=== PATIENT | female | born 1945 | race Caucasian/White ===

== ENCOUNTER → 2016-12-26 | Outpatient (CLI) | payer MEDICARE, OTHER ==
[2015-10-22 21:36] VITALS: BP 177/77
[~2016-12-26] MED LIST: HYDR2TAB31 PO; LISI10TA2 PO; OXYC10TA45 PO
== END | disposition home or self-care (01) ==
LOC: PCVCCLINIC 13:55
PROVIDERS: ATTEND Internal Medicine
DX: I47.1 Supraventricular tachycardia (principal); E78.5 Hyperlipidemia, unspecified; I10 Essential (primary) hypertension; G47.33 Obstructive sleep apnea (adult) (pediatric); C90.00 Multiple myeloma not having achieved remission; J45.30 Mild persistent asthma, uncomplicated; K21.9 Gastro-esophageal reflux disease without esophagitis; Z90.49 Acquired absence of other specified parts of digestive tract; Z79.82 Long term (current) use of aspirin; Z90.710 Acquired absence of both cervix and uterus; Z88.1 Allergy status to other antibiotic agents; Z91.048 Other nonmedicinal substance allergy status
CPT/HCPCS: 80061; 93005; G0463

== ENCOUNTER 2017-01-09 21:32 | Emergency (ER) | payer MEDICARE, OTHER ==
[~2017-01-09] VITALS: Ht 154.9 cm; Wt 128.4 kg
[2017-01-09] MEDS ORDERED: DIPHTH,PERTUSS(ACELL),TET TOX 0.5 ML DISP.SYRIN. VAX IM ONE (22:30)
[2017-01-09] MEDS ORDERED: HYDROcodone/APAP 5/325MG 1 TAB TABLET PO ONE (22:30)
--- NOTE | 2017-01-09 23:03 | RAD ---
: HISTORY: Line placement DATE OF SERVICE: 01/09/2017. COMPARISON: 2 views chest from earlier today. All the. No pneumothorax or mediastinal silhouette appears normal. Lungs are clear. IMPRESSION: Exam performed: CT scan of the head without contrast. Date of Service: 01/09/2017. Comparison: CT head without contrast from 01/02/2013. Clinical History: Dizziness and syncope. Technique: Helical acquisitions are obtained from the foramen magnum to the vertex without intravenous administration of contrast. In addition helical acquisitions also obtained through the maxillofacial structures. Sagittal and coronal reformatted images are obtained and reviewed. CT head Findings: Mild age-related atrophy is noted. Normal valentine-white differentiation is maintained. There is no extra axial fluid collection, intraparenchymal hemorrhage or mass lesion. The visualized portions of the orbits, paranasal sinuses and the mastoid air cells appear clear. The calvarium is intact. Impression: 1. No acute intracranial process detected. End impression CT scan maxillofacial findings: There is normal aeration of both maxillary, ethmoid, frontal and sphenoid sinuses. No air-fluid level, mucoperiosteal thickening or mucus retention cyst is identified. The bony orbital margins and the intraorbital contents are bilaterally symmetric. The zygomatic arches are intact. Impression: 1. Negative maxillofacial CT scan PQRS Compliance Statement: One or more of the following individualized dose reduction techniques were utilized for this examination: 1. Automated exposure control 2. Adjustment of the mA and/or kV according to patient size 3. Use of iterative reconstruction technique Electronically signed by: Ceci Rico MD (01/09/2017 10:59 PM) [facility]
[2017-01-09 23:15] VITALS: BP 142/74
[2017-01-09] MEDS ORDERED: HYDR-971 PO (23:27)
[2017-01-09] MEDS ORDERED: CEPH-264 PO (23:27)
--- NOTE | 2017-01-09 23:27 | PHYS DOC ---
Past Medical History Past Medical History: Asthma, Cancer, COPD, Hypertension Additional Past Medical Histor: DDD- pain clinic, SLEEP APNEA, MULTIPLE MYELOMA , ENDOMETRIAL CA Past Surgical History: Appendectomy, Cholecystectomy, Hysterectomy Additional Past Surgical Histo: bx L breast, bx of mass is abdomen, L knee surgery, CATARACT, HERNIA Alcohol Use: None Drug Use: None Adult General Chief Complaint Chief Complaint: MULTIPLE TRAUMA/FALL HPI HPI Patient is a 71 year old female presenting to the emergency department for evaluation of headache os consciousness and nasal pain after she tripped while walking her dog and landed on her face. She has multiple abrasions and thinks that her tetanus is not up-to-date so it was updated here. Patient is on chemotherapy and is concerned about possible infection. Patient denies any neck chest abdomen back or other extremity pain. Patient is in no obvious distress with normal vital signs. Review of Systems Review of Systems Constitutional: Denies fever or chills [] Respiratory: Denies cough or shortness of breath [] Cardiovascular: No CP GI: Denies abdominal pain, nausea, vomiting, bloody stools or diarrhea [] Musculoskeletal: Denies back pain or joint pain [] Integument: Denies abrasions Current Medications Current Medications Current Medications Medications (Trade) Dose Ordered Sig/Lily Start Time Stop Time Status Last Admin Dose Admin Acetaminophen/ Hydrocodone Bitart (Lortab 5/325) 2 tab 1X ONCE 01/09/17 22:30 01/09/17 22:31 DC 01/09/17 22:20 2 TAB Diphtheria/ Tetanus/Acell Pertussis (Boostrix) 0.5 ml ONCE ONCE 01/09/17 22:30 01/09/17 22:31 DC 01/09/17 22:21 0.5 ML Allergies Allergies Allergies Coded Allergies Type Severity Reaction Last Updated Verified No Known Drug Allergies 06/04/13 No Physical Exam Physical Exam Constitutional: Well developed, well nourished, no acute distress, non-toxic appearance. [] HENT: Normocephalic, nasal contusion with abrasions, bilateral external ears normal, oropharynx moist, no oral exudates, nose with no septal hematoma Eyes: PERRLA, EOMI, conjunctiva normal, no discharge. [] Cardiovascular:Heart rate regular rhythm, no murmur [] Lungs & Thorax: Bilateral breath sounds clear to auscultation [] Abdomen: Bowel sounds normal, soft, no tenderness, no masses, no pulsatile masses. [] Skin: Warm, dry, no erythema, no rash. [] Back: No tenderness, no CVA tenderness. [] Extremities: No tenderness, no cyanosis, no clubbing, ROM intact, no edema. [] Neurologic: Alert and oriented X 3, normal motor function, normal sensory function, no focal deficits noted. [] Current Patient Data Vital Signs Vital Signs Date Time Temp Pulse Resp B/P (MAP) Pulse Ox O2 Delivery O2 Flow Rate FiO2 01/09/17 21:42 98.5 109 24 202/97 (132) 98 Room Air 98.5 EKG EKG [] Radiology/Procedures Radiology/Procedures Exam performed: CT scan of the head without contrast. Date of Service: 01/09/2017. Comparison: CT head without contrast from 01/02/2013. Clinical History: Dizziness and syncope. Technique: Helical acquisitions are obtained from the foramen magnum to the vertex without intravenous administration of contrast. In addition helical acquisitions also obtained through the maxillofacial structures. Sagittal and coronal reformatted images are obtained and reviewed. CT head Findings: Mild age-related atrophy is noted. Normal valentine-white differentiation is maintained. There is no extra axial fluid collection, intraparenchymal hemorrhage or mass lesion. The visualized portions of the orbits, paranasal sinuses and the mastoid air cells appear clear. The calvarium is intact. Impression: 1. No acute intracranial process detected. End impression CT scan maxillofacial findings: There is normal aeration of both maxillary, ethmoid, frontal and sphenoid sinuses. No air-fluid level, mucoperiosteal thickening or mucus retention cyst is identified. The bony orbital margins and the intraorbital contents are bilaterally symmetric. The zygomatic arches are intact. Impression: 1. Negative maxillofacial CT scan PQRS Compliance Statement: One or more of the following individualized dose reduction techniques were utilized for this examination: 1. Automated exposure control 2. Adjustment of the mA and/or kV according to patient size 3. Use of iterative reconstruction technique Electronically signed by: Ceci Rico MD (01/09/2017 10:59 PM) [facility] DICTATED and SIGNED BY: CECI RICO MD DATE: 01/09/17 1769 Course & Med Decision Making Course & Med Decision Making Patient with normal CT but there is some abrasions that could become infected. Start Keflex and patient will be treated supportively as an outpatient. Patient aware and agreeable with plan for discharge and verbalized understanding of the need for short-term follow-up and strict ED return precautions discussed worsening pain fevers or other general concerns. Dragon Disclaimer Dragon Disclaimer This electronic medical record was generated, in whole or in part, using a voice recognition dictation system. Departure Departure Impression: Primary Impression: Contusion of nose Additional Impression: Nasal abrasion Disposition: HOME, SELF-CARE Condition: STABLE Referrals: DENNIS RUANO (PCP) Patient Instructions: Contusion Additional Instructions: Put ice on your nose. Take 400mg of ibuprofen every 6 hours and the norco for breakthrough pain. Come back to the ED with worsening pain, infection or other general concerns. Thank you! Scripts Cephalexin (KEFLEX) 500 Mg Capsule 1 CAP PO BID, #10 CAP Prov: JOSY MICHEL DO 01/09/17 Hydrocodone/Apap 5-325 (NORCO 5-325 TABLET) 1 Each Tablet 1 TAB PO PRN Q6HRS Y for PAIN, #10 TAB 0 Refills Prov: JOSY MICHEL DO 01/09/17 Problem Qualifiers Primary Impression: Contusion of nose Encounter type: initial encounter Qualified Codes: S00.33XA - Contusion of nose, initial encounter JOSY MICHEL DO Jan 09, 2017 23:27
== END 2017-01-09 23:30 | disposition home or self-care (01) ==
LOC: ER 21:32
DX: S00.33XA Contusion of nose, initial encounter (principal); J44.9 Chronic obstructive pulmonary disease, unspecified; I10 Essential (primary) hypertension; W01.0XXA Fall on same level from slipping, tripping and stumbling without subsequent striking against object, initial encounter; Y93.89 Activity, other specified; Y92.89 Other specified places as the place of occurrence of the external cause; Y99.8 Other external cause status; Z90.710 Acquired absence of both cervix and uterus; Z90.49 Acquired absence of other specified parts of digestive tract
CPT/HCPCS: 70450; 70486; 90471; 90715; 99284-25

== ENCOUNTER 2017-04-15 12:01 | Inpatient (IN) | payer MEDICARE, OTHER ==
[2017-04-15 12:26] LABS: POC GLUCOSE 103 mg/dL (70-99)
[2017-04-15 12:51] LABS: ADD MAN DIFF? NO
[2017-04-15 12:55] LABS: BASO % 0 % (0-3); EOS # 0.3 x10^3/uL (0.0-0.7); EOS % 2 % (0-3); HEMATOCRIT 35.3 % (36.0-47.0); HEMOGLOBIN 11.3 g/dL (12.0-15.5); LYMPH # 1.7 x10^3/uL (1.0-4.8); LYMPH % 11 % (24-48); MEAN CORPUSCULAR HEMOGLOBIN 31 pg (25-35); MEAN CORPUSCULAR HGB CONC 32 g/dL (31-37); MEAN CORPUSCULAR VOLUME 97 fL (79-100); MONO % 7 % (0-9); NEUT # 11.9 x10^3uL (1.8-7.7); NEUT % 80 % (31-73); PLATELET COUNT 236 x10^3/uL (140-400); RED BLOOD COUNT 3.62 x10^6/uL (3.50-5.40); RED CELL DISTRIBUTION WIDTH 15.6 % (11.5-14.5); WHITE BLOOD COUNT 14.9 x10^3/uL (4.0-11.0)
[2017-04-15 13:09] LABS: ANION GAP 10 (6-14); BLOOD UREA NITROGEN 27 mg/dL (7-20); BUN/CREATININE RATIO 19 (6-20); CALCIUM 9.5 mg/dL (8.5-10.1); CARBON DIOXIDE 27 mmol/L (21-32); CHLORIDE 102 mmol/L (98-107); CREATININE 1.4 mg/dL (0.6-1.0); GFR 37.1; GLUCOSE 115 mg/dL (70-99); POTASSIUM 4.5 mmol/L (3.5-5.1); SODIUM 139 mmol/L (136-145)
[2017-04-15 13:15] LABS: ALBUMIN 2.8 g/dL (3.4-5.0); ALBUMIN/GLOBULIN RATIO 0.9 (1.0-1.7); ALK PHOS 95 U/L (46-116); ALT (SGPT) 25 U/L (14-59); AST (SGOT) 22 U/L (15-37); LIPASE 32 U/L (73-393); MAGNESIUM 1.6 mg/dL (1.8-2.4); TOTAL BILIRUBIN 0.6 mg/dL (0.2-1.0); TOTAL PROTEIN 5.8 g/dL (6.4-8.2)
[2017-04-15 13:17] LABS: TROPONINI < 0.017 ng/mL (0.000-0.055)
[2017-04-15 13:21] LABS: NT-PRO BNP 615 pg/mL (0-124)
[2017-04-15 13:23] LABS: THYROID STIM HORMONE (TSH) 2.818 uIU/mL (0.358-3.74)
[2017-04-15] MEDS: LABETALOL 20 MG/4 ML DISP.SYRIN. IVP (13:30)
[2017-04-15] MEDS ORDERED: ONDANSETRON PF 4 MG/2 ML VIAL. IV (13:45)
[2017-04-15 13:49] LABS: BILIRUBIN,URINE SMALL (NEG); CLARITY,URINE CLEAR; COLOR,URINE AMBER; GLUCOSE,URINE NEGATIVE (NEG); NITRITE,URINE NEGATIVE (NEG); PH,URINE 6.5; PROTEIN,URINE 30 mg/dL (NEG-TRACE)
[2017-04-15 13:57] LABS: BACTERIA,URINE MODERATE /HPF (0-FEW); SQUAMOUS EPITHELIAL CELL,UR MANY /LPF
[2017-04-15] MEDS ORDERED: VANCOMYCIN 2 GM in IV DEXTROSE 5 %-0.2 % NACL 500 ML IV (14:00)
[2017-04-15] MEDS: VANCOMYCIN 2 GM in IV DEXTROSE 5 %-0.2 % NACL 500 ML IV (14:52)
[2017-04-15] MEDS: VANCOMYCIN PER PHARMACY MC (17:47)
[2017-04-15] MEDS ORDERED: IV NORMAL SALINE 500ML BAG 500 ML IV (20:15)
[2017-04-15] MEDS: IV NORMAL SALINE 1000ML BAG 1,000 ML IV ×2 (20:17→20:45)
[2017-04-15] MEDS: LACTOBACILLUS RHAMNOSUS GG 1 CAPSULE. PO (20:54)
[2017-04-15] MEDS: HYDROcodone/APAP 5/325MG 1 TAB TABLET PO (20:55)
[2017-04-15] MEDS: ENOXAPARIN 40 MG/0.4 ML SYRINGE. SQ (20:55)
[2017-04-15 21:37] LABS: INFLUENZA A PATIENT NEGATIVE (NEGATIVE); INFLUENZA B PATIENT NEGATIVE (NEGATIVE); OBC FLU VALID
[2017-04-15] MEDS: HYDROmorphone 2 MG TABLET PO (23:43)
[2017-04-15] MEDS: BENZOCAINE 10% ORAL GEL 7GM TUBE. TP (23:55)
[2017-04-16] MEDS: HYDROcodone/APAP 5/325MG 1 TAB TABLET PO (04:55)
[2017-04-16 07:38] LABS: ADD MAN DIFF? NO
[2017-04-16 07:41] LABS: BASO % 0 % (0-3); EOS # 0.3 x10^3/uL (0.0-0.7); EOS % 3 % (0-3); HEMATOCRIT 33.1 % (36.0-47.0); HEMOGLOBIN 10.6 g/dL (12.0-15.5); LYMPH # 1.4 x10^3/uL (1.0-4.8); LYMPH % 15 % (24-48); MEAN CORPUSCULAR HEMOGLOBIN 31 pg (25-35); MEAN CORPUSCULAR HGB CONC 32 g/dL (31-37); MEAN CORPUSCULAR VOLUME 97 fL (79-100); MONO # 0.9 x10^3/uL (0.0-1.1); MONO % 10 % (0-9); NEUT # 6.9 x10^3uL (1.8-7.7); NEUT % 72 % (31-73); PLATELET COUNT 196 x10^3/uL (140-400); RED CELL DISTRIBUTION WIDTH 15.4 % (11.5-14.5); WHITE BLOOD COUNT 9.6 x10^3/uL (4.0-11.0)
[2017-04-16 08:08] LABS: ANION GAP 10 (6-14); BLOOD UREA NITROGEN 29 mg/dL (7-20); CALCIUM 9.3 mg/dL (8.5-10.1); CARBON DIOXIDE 27 mmol/L (21-32); CHLORIDE 103 mmol/L (98-107); CREATININE 1.6 mg/dL (0.6-1.0); GFR 31.8; GLUCOSE 113 mg/dL (70-99); POTASSIUM 4.4 mmol/L (3.5-5.1); SODIUM 140 mmol/L (136-145)
[2017-04-16] MEDS: LACTOBACILLUS RHAMNOSUS GG 1 CAPSULE. PO ×2 (09:13→21:05)
[2017-04-16] MEDS: oxyCODONE ER 10 MG TAB.ER.12H PO (09:19)
[2017-04-16] MEDS: methylPREDNISolone ACETATE 40 MG/ML VIAL. INT ART ×2 (09:30)
[2017-04-16] MEDS: BUPIVACAINE MPF 0.25% 10 ML VIAL. IJ (09:30)
[2017-04-16] MEDS: MORPHINE ER 30 MG TABLET.ER PO ×2 (11:11→21:09)
[2017-04-16] MEDS: MEROPENEM IV Push 500 MG VIAL. IVP (12:30)
[2017-04-16] MEDS: IV NORMAL SALINE 1000ML BAG 1,000 ML IV (13:18)
[2017-04-16] MEDS ORDERED: VANCOMYCIN 2 GM in IV DEXTROSE 5 %-0.2 % NACL 500 ML IV (14:00)
[2017-04-16] MEDS ORDERED: MEROPENEM 500 MG in IV NORMAL SALINE 50ML 50 ML IV (14:00)
[2017-04-16] MEDS: HYDROmorphone 2 MG TABLET PO (15:28)
[2017-04-16] MEDS: BENZOCAINE 10% ORAL GEL 7GM TUBE. TP (21:09)
[2017-04-17] MEDS: hydrALAZINE 20 MG/ML VIAL. IVP ×2 (00:30→09:56)
[2017-04-17] MEDS: HYDROcodone/APAP 5/325MG 1 TAB TABLET PO ×3 (01:21→16:52)
[2017-04-17] MEDS: MORPHINE ER 30 MG TABLET.ER PO ×2 (08:44→20:55)
[2017-04-17] MEDS: LACTOBACILLUS RHAMNOSUS GG 1 CAPSULE. PO ×2 (08:44→20:55)
[2017-04-17] MEDS: HYDROmorphone 2 MG TABLET PO (12:51)
[2017-04-17] MEDS ORDERED: ACETAMINOPHEN 500 MG TABLET PO (14:00)
[2017-04-17] MEDS: LISINOPRIL 10 MG TABLET PO (14:41)
[2017-04-17] MEDS: amLODIPine BESYLATE 5 MG TABLET PO (14:49)
[2017-04-17 14:55] LABS: ADD MAN DIFF? NO
[2017-04-17 15:01] LABS: BASO # 0.1 x10^3/uL (0.0-0.2); BASO % 1 % (0-3); EOS % 0 % (0-3); HEMOGLOBIN 12.4 g/dL (12.0-15.5); LYMPH # 1.6 x10^3/uL (1.0-4.8); LYMPH % 11 % (24-48); MEAN CORPUSCULAR HEMOGLOBIN 31 pg (25-35); MEAN CORPUSCULAR HGB CONC 33 g/dL (31-37); MEAN CORPUSCULAR VOLUME 95 fL (79-100); MONO % 7 % (0-9); NEUT # 11.4 x10^3uL (1.8-7.7); NEUT % 81 % (31-73); PLATELET COUNT 352 x10^3/uL (140-400); RED BLOOD COUNT 3.99 x10^6/uL (3.50-5.40); RED CELL DISTRIBUTION WIDTH 15.6 % (11.5-14.5); WHITE BLOOD COUNT 14.1 x10^3/uL (4.0-11.0)
[2017-04-17 15:36] LABS: ALBUMIN 3.3 g/dL (3.4-5.0); ALK PHOS 101 U/L (46-116); ALT (SGPT) 22 U/L (14-59); ANION GAP 12 (6-14); AST (SGOT) 16 U/L (15-37); BLOOD UREA NITROGEN 21 mg/dL (7-20); BUN/CREATININE RATIO 19 (6-20); CARBON DIOXIDE 26 mmol/L (21-32); CHLORIDE 106 mmol/L (98-107); CREATININE 1.1 mg/dL (0.6-1.0); GLUCOSE 130 mg/dL (70-99); POTASSIUM 3.9 mmol/L (3.5-5.1); SODIUM 144 mmol/L (136-145); TOTAL BILIRUBIN 0.3 mg/dL (0.2-1.0); TOTAL PROTEIN 6.5 g/dL (6.4-8.2)
[2017-04-17] MEDS: ASPIRIN 325 MG TABLET PO (16:51)
[2017-04-17] MEDS: CELECOXIB 100 MG CAPSULE. PO (20:55)
[2017-04-18 06:56] LABS: CHOLESTEROL 125 mg/dL (0-200); HDLC 35 mg/dL (40-60); LDLC 62 mg/dL (0-100); NON-HDL CHOLESTEROL 90 mg/dL (0-129); TRIGLYCERIDES 140 mg/dL (0-150); VLDLC 28 mg/dL (0-40)
[2017-04-18 07:00] LABS: CHOLESTEROL/HDL RATIO 3.6
[2017-04-18] MEDS: DIPHENHYDRAMINE/ZINC ACETATE 2%/0.1% TOPICAL CREAM 28GM TUBE. TP (12:46)
[2017-04-18] MEDS: amLODIPine BESYLATE 5 MG TABLET PO (12:47)
[2017-04-18] MEDS: MORPHINE ER 30 MG TABLET.ER PO ×2 (12:48→20:39)
[2017-04-18] MEDS: LACTOBACILLUS RHAMNOSUS GG 1 CAPSULE. PO ×2 (12:49→20:38)
[2017-04-18] MEDS: CELECOXIB 100 MG CAPSULE. PO ×2 (12:49→20:38)
[2017-04-18] MEDS: LISINOPRIL 10 MG TABLET PO ×2 (12:49→20:39)
[2017-04-18] MEDS: ASPIRIN 325 MG TABLET PO (12:49)
[2017-04-18] MEDS: HYDROcodone/APAP 5/325MG 1 TAB TABLET PO (17:46)
[2017-04-18] MEDS: BENZOCAINE 10% ORAL GEL 7GM TUBE. TP (20:41)
[2017-04-19] MEDS: MORPHINE ER 30 MG TABLET.ER PO ×2 (08:12→21:02)
[2017-04-19] MEDS: amLODIPine BESYLATE 10 MG TABLET PO (08:13)
[2017-04-19] MEDS: LACTOBACILLUS RHAMNOSUS GG 1 CAPSULE. PO ×2 (08:13→21:03)
[2017-04-19] MEDS: ASPIRIN 325 MG TABLET PO (08:13)
[2017-04-19] MEDS: CELECOXIB 100 MG CAPSULE. PO (08:13)
[2017-04-19] MEDS: LISINOPRIL 10 MG TABLET PO ×2 (08:14→21:03)
[2017-04-19] MEDS: BENZOCAINE 10% ORAL GEL 7GM TUBE. TP (10:51)
[2017-04-19 15:05] LABS: ADD MAN DIFF? NO
[2017-04-19 15:18] LABS: BASO % 1 % (0-3); EOS # 0.3 x10^3/uL (0.0-0.7); EOS % 3 % (0-3); HEMOGLOBIN 12.3 g/dL (12.0-15.5); LYMPH % 25 % (24-48); MEAN CORPUSCULAR HEMOGLOBIN 32 pg (25-35); MEAN CORPUSCULAR HGB CONC 33 g/dL (31-37); MEAN CORPUSCULAR VOLUME 96 fL (79-100); MONO % 13 % (0-9); NEUT # 4.7 x10^3uL (1.8-7.7); NEUT % 58 % (31-73); PLATELET COUNT 295 x10^3/uL (140-400); RED BLOOD COUNT 3.84 x10^6/uL (3.50-5.40); RED CELL DISTRIBUTION WIDTH 15.2 % (11.5-14.5); WHITE BLOOD COUNT 8.1 x10^3/uL (4.0-11.0)
[2017-04-19 15:34] LABS: ANION GAP 8 (6-14); BLOOD UREA NITROGEN 17 mg/dL (7-20); CALCIUM 8.5 mg/dL (8.5-10.1); CARBON DIOXIDE 29 mmol/L (21-32); CHLORIDE 106 mmol/L (98-107); CREATININE 0.9 mg/dL (0.6-1.0); GFR 61.7; GLUCOSE 119 mg/dL (70-99); POTASSIUM 3.6 mmol/L (3.5-5.1); SODIUM 143 mmol/L (136-145)
[2017-04-20] MEDS: HYDROcodone/APAP 5/325MG 1 TAB TABLET PO (01:45)
[2017-04-20 04:11] LABS: ANION GAP 10 (6-14); BLOOD UREA NITROGEN 19 mg/dL (7-20); CALCIUM 8.9 mg/dL (8.5-10.1); CARBON DIOXIDE 29 mmol/L (21-32); CHLORIDE 107 mmol/L (98-107); CREATININE 0.9 mg/dL (0.6-1.0); GFR 61.7; GLUCOSE 156 mg/dL (70-99); POTASSIUM 3.6 mmol/L (3.5-5.1); SODIUM 146 mmol/L (136-145)
[2017-04-20] MEDS: ASPIRIN 325 MG TABLET PO (08:35)
[2017-04-20] MEDS: LISINOPRIL 10 MG TABLET PO (08:36)
[2017-04-20] MEDS: LACTOBACILLUS RHAMNOSUS GG 1 CAPSULE. PO (08:36)
[2017-04-20] MEDS: amLODIPine BESYLATE 10 MG TABLET PO (08:37)
[2017-04-20] MEDS: MORPHINE ER 30 MG TABLET.ER PO (08:37)
[2017-04-20] MEDS: HEPARIN PF 500 UNIT/5 ML DISP.SYRIN. IV (15:09)
== END 2017-04-20 15:44 | disposition home or self-care (01) | DRG 871 ==
LOC: ER 12:01 → ED HOLD 14:06 → 5 NORTH 16:44
PROVIDERS: Internal Medicine
DX: A41.9 Sepsis, unspecified organism (principal); G93.41 Metabolic encephalopathy; J96.01 Acute respiratory failure with hypoxia; N17.0 Acute kidney failure with tubular necrosis; E43 Unspecified severe protein-calorie malnutrition; C90.00 Multiple myeloma not having achieved remission; J18.9 Pneumonia, unspecified organism; G62.0 Drug-induced polyneuropathy; J44.9 Chronic obstructive pulmonary disease, unspecified; F11.20 Opioid dependence, uncomplicated; Z68.43 Body mass index [BMI] 50.0-59.9, adult; G81.91 Hemiplegia, unspecified affecting right dominant side; M51.36 Other intervertebral disc degeneration, lumbar region; M77.9 Enthesopathy, unspecified; N63.20 Unspecified lump in the left breast, unspecified quadrant; E86.0 Dehydration; G47.33 Obstructive sleep apnea (adult) (pediatric); H26.9 Unspecified cataract; T45.1X5A Adverse effect of antineoplastic and immunosuppressive drugs, initial encounter; I10 Essential (primary) hypertension; M17.0 Bilateral primary osteoarthritis of knee; S39.012A Strain of muscle, fascia and tendon of lower back, initial encounter; M19.90 Unspecified osteoarthritis, unspecified site; G89.29 Other chronic pain; M75.101 Unspecified rotator cuff tear or rupture of right shoulder, not specified as traumatic; E66.01 Morbid (severe) obesity due to excess calories; Z82.49 Family history of ischemic heart disease and other diseases of the circulatory system; Z88.0 Allergy status to penicillin; Z82.0 Family history of epilepsy and other diseases of the nervous system; Z83.3 Family history of diabetes mellitus; Z85.42 Personal history of malignant neoplasm of other parts of uterus; Z90.49 Acquired absence of other specified parts of digestive tract; Z90.710 Acquired absence of both cervix and uterus
CPT/HCPCS: 36415; 70450; 70551; 71045; 73030; 73565; 77066; 80048; 80053; 80061; 81001; 82962; 83690; 83735; 83880; 84443; 84484; 85025; 87086; 87804; 87804-59; 92610-GN; 93005; 93880; 93971; 96365; 96366; 96368; 97116-GP; 97161-GP; 97166-GO; 99285; 99285-25; J0360; J1030; J1650; J1956; J3370; J3490; J7030

== ENCOUNTER 2017-05-10 18:58 | Inpatient (IN) | payer MEDICARE, OTHER ==
[2017-05-10] MEDS: IV NORMAL SALINE 1000ML BAG 1,000 ML IV ×2 (19:45→22:49)
[2017-05-10 19:52] LABS: BASO % 0 % (0-3); BILIRUBIN,URINE MODERATE (NEG); CLARITY,URINE CLEAR; EOS % 0 % (0-3); GLUCOSE,URINE NEGATIVE (NEG); HEMATOCRIT 37.9 % (36.0-47.0); HEMOGLOBIN 12.4 g/dL (12.0-15.5); LYMPH # 1.2 x10^3/uL (1.0-4.8); LYMPH % 7 % (24-48); MEAN CORPUSCULAR HEMOGLOBIN 31 pg (25-35); MEAN CORPUSCULAR HGB CONC 33 g/dL (31-37); MEAN CORPUSCULAR VOLUME 96 fL (79-100); MONO # 2.4 x10^3/uL (0.0-1.1); MONO % 14 % (0-9); NEUT # 12.9 x10^3uL (1.8-7.7); NEUT % 78 % (31-73); NITRITE,URINE NEGATIVE (NEG); PLATELET COUNT 551 x10^3/uL (140-400); PROTEIN,URINE 30 mg/dL (NEG-TRACE); RED BLOOD COUNT 3.94 x10^6/uL (3.50-5.40); RED CELL DISTRIBUTION WIDTH 16.8 % (11.5-14.5); WHITE BLOOD COUNT 16.5 x10^3/uL (4.0-11.0)
[2017-05-10 19:53] LABS: ADD MAN DIFF? YES
[2017-05-10 19:57] LABS: BACTERIA,URINE 0 /HPF (0-FEW); COLOR,URINE AMBER; HYALINE CASTS, URINE OCCASIONAL /HPF; RBC,URINE 0 /HPF (0-2); WBC,URINE 0 /HPF (0-4)
[2017-05-10 19:58] LABS: BARBITURATES NEG (NEG); BENZODIAZEPINES POS (NEG); CANNABINOIDS NEG (NEG); COCAINE NEG (NEG); METHADONE NEG (NEG); OPIATES POS (NEG); PHENCYCLIDINE NEG (NEG)
[2017-05-10] MEDS ORDERED: ONDANSETRON PF 4 MG/2 ML VIAL. (19:58)
[2017-05-10 20:03] LABS: AMPHETAMINE/METHAMPHETAMINE NEG (NEG); ETHANOL, URINE NEG (NEG)
[2017-05-10 20:08] LABS: ETHANOL < 10 mg/dL (0-10)
[2017-05-10 20:15] LABS: ALBUMIN 2.5 g/dL (3.4-5.0); ALBUMIN/GLOBULIN RATIO 0.5 (1.0-1.7); ALK PHOS 114 U/L (46-116); ALT (SGPT) 28 U/L (14-59); ANION GAP 22 (6-14); AST (SGOT) 59 U/L (15-37); BLOOD UREA NITROGEN 91 mg/dL (7-20); BUN/CREATININE RATIO 15 (6-20); CALCIUM 7.9 mg/dL (8.5-10.1); CARBON DIOXIDE 15 mmol/L (21-32); CHLORIDE 96 mmol/L (98-107); CREATININE 6.1 mg/dL (0.6-1.0); GFR 6.8; GLUCOSE 145 mg/dL (70-99); SODIUM 133 mmol/L (136-145); TOTAL BILIRUBIN 1.1 mg/dL (0.2-1.0); TOTAL PROTEIN 7.2 g/dL (6.4-8.2)
[2017-05-10 20:17] LABS: TROPONINI < 0.017 ng/mL (0.000-0.055)
[2017-05-10 20:18] LABS: NT-PRO BNP 1232 pg/mL (0-124)
[2017-05-10 20:27] LABS: % BANDS 54 % (0-9); % LYMPHS 2 % (24-48); % METAS 2 % (0-0); % MONOS 9 % (0-10); % MYELOS 1 % (0-0); % SEGS 32 % (35-66); NUCLEATED RBC 1; PLT ESTIMATE INCREASED (ADEQUATE)
[2017-05-10 20:28] LABS: LACTIC ACID 3.1 mmol/L (0.4-2.0)
[2017-05-10 20:28] LABS: ANISOCYTOSIS SLIGHT; POIKILOCYTOSIS SLIGHT; TOXIC GRANULATION SLIGHT; TOXIC VACUOLATION PRESENT
[2017-05-10] MEDS ORDERED: CALCIUM GLUCONATE 100 MG/ML VIAL for DOSE IN MG. IVP (20:30)
[2017-05-10] MEDS ORDERED: ACETAMINOPHEN 325 MG TABLET. PO (21:15)
[2017-05-10] MEDS ORDERED: ONDANSETRON PF 4 MG/2 ML VIAL. IV (21:15)
[2017-05-10] MEDS: INSULIN REGULAR 100 UNIT/ML 10ML VIAL. IV (22:20)
[2017-05-10] MEDS: DEXTROSE 50% 25 GM / 50ML DISP.SYRIN. IV (22:22)
[2017-05-10] MEDS: SODIUM BICARB ADULT 8.4% 50 MEQ/50 ML DISP.SYRIN. IV (22:27)
[2017-05-10] MEDS: CALCIUM GLUCONATE 1,000 MG/10 ML VIAL. IV (22:35)
[2017-05-10 23:09] LABS: INFLUENZA A PATIENT NEGATIVE (NEGATIVE); INFLUENZA B PATIENT NEGATIVE (NEGATIVE); OBC FLU VALID
[2017-05-11 02:07] LABS: LACTIC ACID 2.6 mmol/L (0.4-2.0)
[2017-05-11] MEDS: IV NORMAL SALINE 1000ML BAG 1,000 ML IV ×8 (03:57→21:49)
[2017-05-11 05:23] LABS: ADD MAN DIFF? NO
[2017-05-11 05:43] LABS: BASO % 0 % (0-3); EOS % 0 % (0-3); HEMATOCRIT 36.6 % (36.0-47.0); HEMOGLOBIN 11.8 g/dL (12.0-15.5); LYMPH % 8 % (24-48); MEAN CORPUSCULAR HEMOGLOBIN 31 pg (25-35); MEAN CORPUSCULAR HGB CONC 32 g/dL (31-37); MEAN CORPUSCULAR VOLUME 97 fL (79-100); MONO % 15 % (0-9); NEUT # 10.1 x10^3uL (1.8-7.7); NEUT % 77 % (31-73); PLATELET COUNT 499 x10^3/uL (140-400); RED BLOOD COUNT 3.78 x10^6/uL (3.50-5.40); RED CELL DISTRIBUTION WIDTH 16.7 % (11.5-14.5); WHITE BLOOD COUNT 13.1 x10^3/uL (4.0-11.0)
[2017-05-11 06:09] LABS: ALBUMIN 2.1 g/dL (3.4-5.0); ALBUMIN/GLOBULIN RATIO 0.5 (1.0-1.7); ALK PHOS 106 U/L (46-116); ALT (SGPT) 38 U/L (14-59); ANION GAP 21 (6-14); AST (SGOT) 88 U/L (15-37); BLOOD UREA NITROGEN 96 mg/dL (7-20); BUN/CREATININE RATIO 16 (6-20); CALCIUM 7.7 mg/dL (8.5-10.1); CARBON DIOXIDE 16 mmol/L (21-32); CHLORIDE 99 mmol/L (98-107); CREATININE 5.9 mg/dL (0.6-1.0); GLUCOSE 106 mg/dL (70-99); POTASSIUM 5.8 mmol/L (3.5-5.1); SODIUM 136 mmol/L (136-145); TOTAL BILIRUBIN 0.8 mg/dL (0.2-1.0); TOTAL PROTEIN 6.4 g/dL (6.4-8.2)
[2017-05-11 06:15] LABS: TROPONINI < 0.017 ng/mL (0.000-0.055)
[2017-05-11 07:03] LABS: LACTIC ACID 1.7 mmol/L (0.4-2.0)
[2017-05-11] MEDS: ONDANSETRON PF 4 MG/2 ML VIAL. IV (07:32)
[2017-05-11] MEDS: INSULIN REGULAR 100 UNIT/ML 10ML VIAL. IV ×2 (08:45→14:27)
[2017-05-11] MEDS: DEXTROSE 50% 25 GM / 50ML DISP.SYRIN. IV ×2 (09:07→14:29)
[2017-05-11] MEDS: SODIUM BICARB ADULT 8.4% 50 MEQ/50 ML DISP.SYRIN. IV ×4 (09:07→18:49)
[2017-05-11] MEDS ORDERED: DOCUSATE SODIUM 100 MG CAPSULE. PO (09:30)
[2017-05-11] MEDS ORDERED: ACETAMINOPHEN 325 MG TABLET. PO (09:30)
[2017-05-11] MEDS ORDERED: hydrALAZINE 20 MG/ML VIAL. IVP (09:30)
[2017-05-11 09:39] LABS: BASE EXCESS ABG -9 mmol/L (-3-3); HCO3 ABG 16 mmol/L (21-28); PCO2 ABG 35 mmHg (35-46); PO2 ABG 69 mmHg (65-108); SAT O2 ABG 91 % (92-99)
[2017-05-11 09:42] LABS: PH ABG 7.29 (7.35-7.45)
[2017-05-11] MEDS ORDERED: ACETAMINOPHEN 650 MG SUPP.RECT. PR (09:45)
[2017-05-11 10:45] LABS: TROPONINI < 0.017 ng/mL (0.000-0.055)
[2017-05-11 11:11] LABS: VITAMIN-B12 537 pg/mL (247-911)
[2017-05-11] MEDS ORDERED: ALBUTEROL SULFATE 2.5 MG/3 ML NEBU. NEB (11:30)
[2017-05-11] MEDS: FUROSEMIDE 40 MG/4 ML VIAL. IVP (11:33)
[2017-05-11] MEDS: IPRATRPIUM/ALBUTEROL 0.5/2.5MG 3 ML NEBU. NEB ×3 (11:34→19:42)
[2017-05-11] MEDS ORDERED: levOFLOXacin PER PHARMACY. MC (12:15)
[2017-05-11 12:21] LABS: ANION GAP 15 (6-14); BLOOD UREA NITROGEN 100 mg/dL (7-20); CALCIUM 6.4 mg/dL (8.5-10.1); CARBON DIOXIDE 17 mmol/L (21-32); CHLORIDE 103 mmol/L (98-107); CREATININE 5.8 mg/dL (0.6-1.0); GFR 7.2; GLUCOSE 190 mg/dL (70-99); PHOSPHORUS 5.9 mg/dL (2.6-4.7); SODIUM 135 mmol/L (136-145)
[2017-05-11 12:26] LABS: POTASSIUM 6.4 mmol/L (3.5-5.1)
[2017-05-11] MEDS: HEPARIN PF for SUB-Q USE 5,000 UNIT/0.5 ML VIAL. SQ ×2 (13:00→22:00)
[2017-05-11] MEDS: CALCIUM GLUCONATE 1,000 MG/10 ML VIAL. IVP (13:09)
[2017-05-11] MEDS ORDERED: DEXTROSE 25% 10 ML DISP.SYRIN. IV (14:00)
[2017-05-11] MEDS ORDERED: MAGNESIUM SULFATE 2GM 50 ML IV (14:45)
[2017-05-11] MEDS ORDERED: IV NORMAL SALINE 500ML BAG 500 ML IV (14:45)
[2017-05-11] MEDS: CALCIUM CHLORIDE 2,000 MG in IV NORMAL SALINE 100ML 100 ML IV (14:56)
[2017-05-11] MEDS: NOREPINEPHRIN PREMIX 250 ML IV (15:00)
[2017-05-11] MEDS ORDERED: HEPARIN for IV BOLUS 10,000 UNIT/10 ML VIAL. (15:14)
[2017-05-11] MEDS ORDERED: LIDOCAINE 2% 20 ML VIAL. (15:14)
[2017-05-11] MEDS: LIDOCAINE WITH 8.4% SOD BICARB 3 ML DISP.SYRIN. INJ (15:28)
[2017-05-11 15:48] LABS: AMMONIA 21 mcmol/L (11-34)
[2017-05-11] MEDS: ASPIRIN 325 MG TABLET PO (16:00)
[2017-05-11 17:04] LABS: LACTATE DEHYDROGENASE 357 U/L (81-234); LIPASE 44 U/L (73-393); URIC ACID 7.6 mg/dL (2.6-6.0)
[2017-05-11 17:04] LABS: ALBUMIN 1.5 g/dL (3.4-5.0)
[2017-05-11 17:14] LABS: THYROID STIM HORMONE (TSH) 0.475 uIU/mL (0.358-3.74)
[2017-05-11] MEDS: ALBUMIN HUMAN 25% 200 ML IV (17:55)
[2017-05-11] MEDS ORDERED: IV NORMAL SALINE 1000ML BAG 1,000 ML IV ×2 (17:55)
[2017-05-11] MEDS: CEFEPIME HCL IV Push 1 GM VIAL. IVP (17:56)
[2017-05-11] MEDS ORDERED: diphenhydrAMINE 50 MG/ML VIAL IV ×2 (18:00)
[2017-05-11] MEDS ORDERED: DIALYSIS PATIENT. MC (18:00)
[2017-05-11] MEDS: VANCOMYCIN PER PHARMACY MC (20:16)
[2017-05-11] MEDS: VANCOMYCIN 2 GM in IV DEXTROSE 5 %-0.2 % NACL 500 ML IV (21:50)
[2017-05-11] MEDS: FAMOTIDINE 20 MG/2 ML VIAL IVP (21:50)
[2017-05-11] MEDS ORDERED: CEFEPIME HCL 1 GM in IV DEXTROSE 5% 50 ML IV (22:00)
[2017-05-12] MEDS: ACETAMINOPHEN 650 MG SUPP.RECT. PR (00:15)
[2017-05-12] MEDS: NOREPINEPHRIN PREMIX 250 ML IV (00:19)
[2017-05-12] MEDS: MORPHINE SULFATE 2 MG/ML DISP.SYRIN. IV (03:26)
[2017-05-12] MEDS: IV NORMAL SALINE 1000ML BAG 1,000 ML IV ×2 (05:10→08:13)
[2017-05-12] MEDS: HEPARIN PF for SUB-Q USE 5,000 UNIT/0.5 ML VIAL. SQ ×3 (05:10→21:43)
[2017-05-12 05:42] LABS: ADD MAN DIFF? NO
[2017-05-12 05:56] LABS: BASO % 0 % (0-3); EOS % 0 % (0-3); HEMATOCRIT 33.2 % (36.0-47.0); LYMPH # 0.7 x10^3/uL (1.0-4.8); LYMPH % 10 % (24-48); MEAN CORPUSCULAR HEMOGLOBIN 31 pg (25-35); MEAN CORPUSCULAR HGB CONC 33 g/dL (31-37); MEAN CORPUSCULAR VOLUME 94 fL (79-100); MONO % 14 % (0-9); NEUT # 5.5 x10^3uL (1.8-7.7); NEUT % 76 % (31-73); PLATELET COUNT 336 x10^3/uL (140-400); RED BLOOD COUNT 3.53 x10^6/uL (3.50-5.40); WHITE BLOOD COUNT 7.3 x10^3/uL (4.0-11.0)
[2017-05-12 06:14] LABS: CREATINE KINASE 184 U/L (26-192)
[2017-05-12 06:14] LABS: MAGNESIUM 1.6 mg/dL (1.8-2.4)
[2017-05-12 06:16] LABS: ALBUMIN 1.4 g/dL (3.4-5.0); ANION GAP 11 (6-14); BLOOD UREA NITROGEN 55 mg/dL (7-20); CALCIUM 7.3 mg/dL (8.5-10.1); CARBON DIOXIDE 27 mmol/L (21-32); CHLORIDE 101 mmol/L (98-107); CREATININE 3.8 mg/dL (0.6-1.0); GFR 11.7; GLUCOSE 123 mg/dL (70-99); PHOSPHORUS 4.6 mg/dL (2.6-4.7); POTASSIUM 4.2 mmol/L (3.5-5.1); SODIUM 139 mmol/L (136-145)
[2017-05-12] MEDS: IPRATRPIUM/ALBUTEROL 0.5/2.5MG 3 ML NEBU. NEB ×4 (07:23→20:14)
[2017-05-12 07:31] LABS: BASE EXCESS COOX 0 mmol/L (-3-3); CARBON MONOXIDE 1.6 % (0.0-1.9); HCO3 COOX 25 mmol/L (21-28); METHEMOGLOBIN 0.3 % (0.0-1.9); OXYHEMOGLOBIN 92.8 %; PO2 COOX 80 mmHg (65-108); SAT O2 COOX 95 % (92-99); TOTAL HEMOGLOBIN 12.2 g/dL
[2017-05-12 07:33] LABS: PCO2 COOX 39 mmHg (35-46); PH COOX 7.42 (7.35-7.45)
[2017-05-12] MEDS: ASPIRIN 325 MG TABLET PO (08:00)
[2017-05-12] MEDS: ONDANSETRON PF 4 MG/2 ML VIAL. IV (09:45)
[2017-05-12] MEDS ORDERED: DIGOXIN IV 500 MCG/2 ML AMPUL. IV (13:45)
[2017-05-12] MEDS: MAGNESIUM SULFATE 2GM 50 ML IV (14:42)
[2017-05-12] MEDS: CEFEPIME HCL IV Push 1 GM VIAL. IVP (17:00)
[2017-05-12 18:11] LABS: HEP B SURFACE ABDY Non Reactive (.); HEP B SURFACE AG Negative (Negative)
[2017-05-12] MEDS: FAMOTIDINE 20 MG/2 ML VIAL IVP (20:44)
[2017-05-12 23:07] LABS: MRSA BY PCR Negative (Negative)
[2017-05-13 05:30] LABS: ADD MAN DIFF? NO
[2017-05-13] MEDS: HEPARIN PF for SUB-Q USE 5,000 UNIT/0.5 ML VIAL. SQ ×3 (05:37→22:14)
[2017-05-13] MEDS: VANCOMYCIN RANDOM LEVEL. MC (06:00)
[2017-05-13 06:12] LABS: CALCIUM PTH 8.2 mg/dL (8.7-10.3); CREATININE PTH 5.48 mg/dL (0.57-1.00); PHOSPHORUS PTH 4.9 mg/dL (2.5-4.5); PTH INTACT 89 pg/mL (15-65); eGFR AFRICAN-AMER 8 (>59); eGFR NON AFRICAN-AMER 7 (>59)
[2017-05-13 06:16] LABS: ALBUMIN 1.3 g/dL (3.4-5.0); ANION GAP 11 (6-14); BLOOD UREA NITROGEN 81 mg/dL (7-20); CALCIUM 6.8 mg/dL (8.5-10.1); CARBON DIOXIDE 27 mmol/L (21-32); CHLORIDE 102 mmol/L (98-107); CREATININE 4.6 mg/dL (0.6-1.0); GFR 9.4; GLUCOSE 119 mg/dL (70-99); PHOSPHORUS 5.4 mg/dL (2.6-4.7); POTASSIUM 4.5 mmol/L (3.5-5.1); SODIUM 140 mmol/L (136-145)
[2017-05-13 06:18] LABS: BASO % 0 % (0-3); EOS % 0 % (0-3); HEMATOCRIT 32.8 % (36.0-47.0); HEMOGLOBIN 10.8 g/dL (12.0-15.5); LYMPH # 1.3 x10^3/uL (1.0-4.8); LYMPH % 9 % (24-48); MEAN CORPUSCULAR HEMOGLOBIN 31 pg (25-35); MEAN CORPUSCULAR HGB CONC 33 g/dL (31-37); MEAN CORPUSCULAR VOLUME 95 fL (79-100); MONO # 1.3 x10^3/uL (0.0-1.1); MONO % 9 % (0-9); NEUT # 12.7 x10^3uL (1.8-7.7); NEUT % 83 % (31-73); PLATELET COUNT 308 x10^3/uL (140-400); RED BLOOD COUNT 3.45 x10^6/uL (3.50-5.40); RED CELL DISTRIBUTION WIDTH 17.4 % (11.5-14.5); WHITE BLOOD COUNT 15.3 x10^3/uL (4.0-11.0)
[2017-05-13 06:19] LABS: MAGNESIUM 2.5 mg/dL (1.8-2.4)
[2017-05-13 06:19] LABS: CREATINE KINASE 204 U/L (26-192)
[2017-05-13] MEDS: IPRATRPIUM/ALBUTEROL 0.5/2.5MG 3 ML NEBU. NEB ×4 (07:34→19:30)
[2017-05-13] MEDS: ASPIRIN 325 MG TABLET PO (07:39)
[2017-05-13] MEDS ORDERED: DIGOXIN 125 MCG TABLET. PO (09:00)
[2017-05-13] MEDS: IV NORMAL SALINE 1000ML BAG 1,000 ML IV ×2 (10:03→19:59)
[2017-05-13] MEDS: ONDANSETRON PF 4 MG/2 ML VIAL. IV ×2 (10:04→20:30)
[2017-05-13] MEDS: CEFEPIME HCL IV Push 1 GM VIAL. IVP (17:27)
[2017-05-13] MEDS: FAMOTIDINE 20 MG/2 ML VIAL IVP (20:38)
[2017-05-14] MEDS: ONDANSETRON PF 4 MG/2 ML VIAL. IV ×3 (05:15→18:26)
[2017-05-14 05:49] LABS: ADD MAN DIFF? NO
[2017-05-14 05:55] LABS: BASO % 0 % (0-3); EOS % 0 % (0-3); HEMATOCRIT 33.4 % (36.0-47.0); LYMPH # 1.4 x10^3/uL (1.0-4.8); LYMPH % 7 % (24-48); MEAN CORPUSCULAR HEMOGLOBIN 31 pg (25-35); MEAN CORPUSCULAR HGB CONC 33 g/dL (31-37); MEAN CORPUSCULAR VOLUME 94 fL (79-100); MONO # 0.2 x10^3/uL (0.0-1.1); MONO % 1 % (0-9); NEUT # 20.4 x10^3uL (1.8-7.7); NEUT % 92 % (31-73); PLATELET COUNT 260 x10^3/uL (140-400); RED BLOOD COUNT 3.55 x10^6/uL (3.50-5.40); RED CELL DISTRIBUTION WIDTH 17.2 % (11.5-14.5); WHITE BLOOD COUNT 22.1 x10^3/uL (4.0-11.0)
[2017-05-14] MEDS: IV NORMAL SALINE 1000ML BAG 1,000 ML IV ×3 (06:17→18:25)
[2017-05-14] MEDS: HEPARIN PF for SUB-Q USE 5,000 UNIT/0.5 ML VIAL. SQ ×3 (06:18→20:47)
[2017-05-14 06:26] LABS: ALBUMIN 1.3 g/dL (3.4-5.0); ANION GAP 15 (6-14); BLOOD UREA NITROGEN 96 mg/dL (7-20); CALCIUM 7.4 mg/dL (8.5-10.1); CARBON DIOXIDE 25 mmol/L (21-32); CHLORIDE 105 mmol/L (98-107); CREATINE KINASE 135 U/L (26-192); CREATININE 3.8 mg/dL (0.6-1.0); GFR 11.7; GLUCOSE 101 mg/dL (70-99); MAGNESIUM 2.5 mg/dL (1.8-2.4); PHOSPHORUS 5.1 mg/dL (2.6-4.7); POTASSIUM 4.1 mmol/L (3.5-5.1); SODIUM 145 mmol/L (136-145)
[2017-05-14] MEDS: IPRATRPIUM/ALBUTEROL 0.5/2.5MG 3 ML NEBU. NEB ×4 (09:05→20:00)
[2017-05-14] MEDS: ASPIRIN 325 MG TABLET PO (09:29)
[2017-05-14] MEDS ORDERED: LINEZOLID 600 MG TABLET PO (10:00)
[2017-05-14] MEDS: CEFEPIME HCL IV Push 1 GM VIAL. IVP (17:37)
[2017-05-14] MEDS: MORPHINE SULFATE 2 MG/ML DISP.SYRIN. IV ×2 (18:26→20:46)
[2017-05-14] MEDS: LACTOBACILLUS RHAMNOSUS GG 1 CAPSULE. PO (20:56)
[2017-05-14 23:15] LABS: POC GLUCOSE 126 mg/dL (70-99)
[2017-05-15] MEDS: ONDANSETRON PF 4 MG/2 ML VIAL. IV ×2 (00:53→22:08)
[2017-05-15] MEDS: PROCHLORPERAZINE 10 MG/2 ML VIAL. IV ×2 (02:53→12:54)
[2017-05-15] MEDS: MORPHINE SULFATE 2 MG/ML DISP.SYRIN. IV ×2 (02:54→13:39)
[2017-05-15] MEDS: IV NORMAL SALINE 1000ML BAG 1,000 ML IV (02:54)
[2017-05-15] MEDS: HEPARIN PF for SUB-Q USE 5,000 UNIT/0.5 ML VIAL. SQ ×3 (05:55→22:09)
[2017-05-15 06:46] LABS: ADD MAN DIFF? NO
[2017-05-15 06:49] LABS: BASO # 0.1 x10^3/uL (0.0-0.2); BASO % 0 % (0-3); EOS % 0 % (0-3); HEMATOCRIT 35.1 % (36.0-47.0); HEMOGLOBIN 11.4 g/dL (12.0-15.5); LYMPH % 9 % (24-48); MEAN CORPUSCULAR HEMOGLOBIN 31 pg (25-35); MEAN CORPUSCULAR HGB CONC 33 g/dL (31-37); MEAN CORPUSCULAR VOLUME 94 fL (79-100); MONO # 1.2 x10^3/uL (0.0-1.1); MONO % 5 % (0-9); NEUT # 19.1 x10^3uL (1.8-7.7); NEUT % 85 % (31-73); PLATELET COUNT 239 x10^3/uL (140-400); RED BLOOD COUNT 3.73 x10^6/uL (3.50-5.40); RED CELL DISTRIBUTION WIDTH 17.5 % (11.5-14.5); WHITE BLOOD COUNT 22.4 x10^3/uL (4.0-11.0)
[2017-05-15 07:11] LABS: ALBUMIN 1.4 g/dL (3.4-5.0); ANION GAP 12 (6-14); BLOOD UREA NITROGEN 86 mg/dL (7-20); CALCIUM 7.2 mg/dL (8.5-10.1); CARBON DIOXIDE 28 mmol/L (21-32); CHLORIDE 109 mmol/L (98-107); CREATINE KINASE 82 U/L (26-192); CREATININE 2.4 mg/dL (0.6-1.0); GFR 19.9; GLUCOSE 114 mg/dL (70-99); MAGNESIUM 2.1 mg/dL (1.8-2.4); PHOSPHORUS 4.4 mg/dL (2.6-4.7); POTASSIUM 3.4 mmol/L (3.5-5.1); SODIUM 149 mmol/L (136-145)
[2017-05-15] MEDS: IPRATRPIUM/ALBUTEROL 0.5/2.5MG 3 ML NEBU. NEB ×4 (07:20→19:45)
[2017-05-15] MEDS: ASPIRIN 325 MG TABLET PO (08:40)
[2017-05-15] MEDS: LACTOBACILLUS RHAMNOSUS GG 1 CAPSULE. PO ×2 (08:40→22:00)
[2017-05-15] MEDS: AMINO AC 3%/ELECTROLYTE/GLYCER 1,000 ML IV ×2 (09:30→22:05)
[2017-05-15] MEDS: POTASSIUM CHLORIDE 20MEQ 50 ML IV ×2 (10:02→11:10)
[2017-05-15] MEDS: traMADol 50 MG TABLET PO (12:54)
[2017-05-15] MEDS: CEFEPIME HCL IV Push 1 GM VIAL. IVP (17:30)
[2017-05-16] MEDS: PROCHLORPERAZINE 10 MG/2 ML VIAL. IV (00:50)
[2017-05-16] MEDS: MORPHINE SULFATE 2 MG/ML DISP.SYRIN. IV ×4 (00:51→23:58)
[2017-05-16] MEDS: ONDANSETRON PF 4 MG/2 ML VIAL. IV ×2 (06:10→13:28)
[2017-05-16] MEDS: HEPARIN PF for SUB-Q USE 5,000 UNIT/0.5 ML VIAL. SQ ×3 (06:21→22:20)
[2017-05-16 06:28] LABS: ALBUMIN 1.4 g/dL (3.4-5.0); ANION GAP 14 (6-14); BLOOD UREA NITROGEN 76 mg/dL (7-20); CALCIUM 8.3 mg/dL (8.5-10.1); CARBON DIOXIDE 26 mmol/L (21-32); CHLORIDE 112 mmol/L (98-107); CREATINE KINASE 53 U/L (26-192); CREATININE 1.6 mg/dL (0.6-1.0); GFR 31.8; GLUCOSE 143 mg/dL (70-99); MAGNESIUM 1.8 mg/dL (1.8-2.4); PHOSPHORUS 2.8 mg/dL (2.6-4.7); POTASSIUM 3.7 mmol/L (3.5-5.1); SODIUM 152 mmol/L (136-145)
[2017-05-16] MEDS: IPRATRPIUM/ALBUTEROL 0.5/2.5MG 3 ML NEBU. NEB ×4 (08:32→19:59)
[2017-05-16] MEDS: MICAFUNGIN 100 MG in IV DEXTROSE 5% 100 ML IV (12:00)
[2017-05-16] MEDS: AMINO AC 3%/ELECTROLYTE/GLYCER 1,000 ML IV ×2 (13:19→23:00)
[2017-05-16] MEDS: ASPIRIN 325 MG TABLET PO (13:19)
[2017-05-16] MEDS: LACTOBACILLUS RHAMNOSUS GG 1 CAPSULE. PO ×2 (13:19→22:09)
[2017-05-16] MEDS: MEROPENEM IV Push 500 MG VIAL. IVP ×3 (13:21→22:13)
[2017-05-16] MEDS ORDERED: MEROPENEM 500 MG in IV NORMAL SALINE 50ML 50 ML IV (14:00)
[2017-05-16] MEDS: DESMOPRESSIN 4 MCG/ML AMPUL. SQ ×2 (15:30→22:09)
[2017-05-16] MEDS ORDERED: ACETAMINOPHEN 120 MG SUPP.RECT. PR (20:45)
[2017-05-16] MEDS ORDERED: ACETAMINOPHEN 650 MG SUPP.RECT. PR (21:00)
[2017-05-17] MEDS ORDERED: MORPHINE SULFATE 4 MG/ML DISP.SYRIN. IV (00:15)
== END 2017-05-17 03:27 | disposition expired | DRG 871 ==
LOC: 1 WEST ICU 05-11 14:11 → ER 18:58 → 5 NORTH 05-14 18:39 → ED HOLD 21:07 → 2 NORTH 23:04
PROC: 5A09357 Assistance with Respiratory Ventilation, Less than 24 Consecutive Hours, Continuous Positive Airway Pressure (ICD-10-PCS; principal; 2017-05-11)
PROC: 02HV33Z Insertion of Infusion Device into Superior Vena Cava, Percutaneous Approach (ICD-10-PCS; 2017-05-11)
PROC: B548ZZA Ultrasonography of Superior Vena Cava, Guidance (ICD-10-PCS; 2017-05-11)
PROC: 5A1D70Z Performance of Urinary Filtration, Intermittent, Less than 6 Hours Per Day (ICD-10-PCS; 2017-05-11)
PROC: 5A09357 Assistance with Respiratory Ventilation, Less than 24 Consecutive Hours, Continuous Positive Airway Pressure (ICD-10-PCS; 2017-05-12)
PROC: 5A09357 Assistance with Respiratory Ventilation, Less than 24 Consecutive Hours, Continuous Positive Airway Pressure (ICD-10-PCS; 2017-05-13)
PROC: 5A09357 Assistance with Respiratory Ventilation, Less than 24 Consecutive Hours, Continuous Positive Airway Pressure (ICD-10-PCS; 2017-05-16)
DX: A41.9 Sepsis, unspecified organism (principal); J96.01 Acute respiratory failure with hypoxia; N17.0 Acute kidney failure with tubular necrosis; J69.0 Pneumonitis due to inhalation of food and vomit; R65.21 Severe sepsis with septic shock; G92 Toxic encephalopathy; C54.1 Malignant neoplasm of endometrium; D64.9 Anemia, unspecified; E46 Unspecified protein-calorie malnutrition; C90.00 Multiple myeloma not having achieved remission; J44.0 Chronic obstructive pulmonary disease with (acute) lower respiratory infection; L03.115 Cellulitis of right lower limb; L03.116 Cellulitis of left lower limb; Z68.41 Body mass index [BMI] 40.0-44.9, adult; T40.2X1A Poisoning by other opioids, accidental (unintentional), initial encounter; E87.5 Hyperkalemia; G62.9 Polyneuropathy, unspecified; E66.01 Morbid (severe) obesity due to excess calories; E83.39 Other disorders of phosphorus metabolism; E86.1 Hypovolemia; E87.6 Hypokalemia; G47.33 Obstructive sleep apnea (adult) (pediatric); G89.4 Chronic pain syndrome; I10 Essential (primary) hypertension; E66.09 Other obesity due to excess calories; M19.90 Unspecified osteoarthritis, unspecified site; K43.9 Ventral hernia without obstruction or gangrene; Z66 Do not resuscitate; Z79.891 Long term (current) use of opiate analgesic; Z82.49 Family history of ischemic heart disease and other diseases of the circulatory system; Z85.42 Personal history of malignant neoplasm of other parts of uterus; Z88.0 Allergy status to penicillin; Z90.49 Acquired absence of other specified parts of digestive tract; Z90.710 Acquired absence of both cervix and uterus; Z99.2 Dependence on renal dialysis; Y92.89 Other specified places as the place of occurrence of the external cause
CPT/HCPCS: 36415; 36556; 36600; 51702; 70450; 71045; 71250; 74176; 76770; 76937; 80048; 80053; 80069; 80202; 80307; 81001; 82040; 82140; 82306; 82550; 82607; 82805; 82962; 83605; 83615; 83690; 83735; 83880; 83970; 84100; 84145; 84443; 84484; 84550; 85007; 85025; 86705; 86706; 87040; 87086; 87205; 87340; 87641; 87804; 87804-59; 92610-GN; 93005; 94640; 94660; 94760; 95816; 96374; 96375; 97162-GP; 97164-GP; 97166-GO; 97530-GO; 99291-25; C1769; C1892; G0480; J0610; J0692; J0780; J1644; J1815; J1940; J1956; J2020; J2185; J2248; J2270; J2405; J2597; J3370; J3480; J7030; J7042; J7060; J7620; S0028